=== PATIENT | female | born 1950 | race Caucasian/White ===

== ENCOUNTER 2022-06-14 16:37 | Emergency (ER) | payer OTHER ==
[~2022-06-14] VITALS: Ht 157.5 cm; Wt 98.9 kg
[2022-06-14 16:40] VITALS: BP_SYST 140
--- NOTE | 2022-06-14 17:03 | NUR ---
Patient to ER bed H2 to gown for evaluation. Side rails up. Report given to Randy AUGUSTINE .
--- NOTE | 2022-06-14 17:09 | NUR ---
April Chaudhari (pt's friend) called to inquire about pt's status. She states she will come to pick her up if needed. Friend lives in [place] but is willing to assist patient in any way. Her number was given to registration staff to update her demographic data. She can be reached at [phone] or [phone]
--- NOTE | 2022-06-14 17:19 | NUR ---
PT WAS ASSESSED BY DR. LEGGETT. PT STATED FLOYD AND DIZZINESS SINCE THIS MORNING. FEELING NOT GOOD. HX OF DM. PT WAS A/OX4, SPEAKS FULL SENTENCES, FOLLOWS COMMAND, NO SOB.
[2022-06-14] MEDS ORDERED: MECLIZINE HCL 25 MG TABLET (ANITVERT) PO ONE (17:30)
[2022-06-14 17:33] LABS: BILIRUBIN,URINE NEGATIVE (NEGATIVE); COLOR,URINE YELLOW (YELLOW); GLUCOSE,URINE 3+ (NEGATIVE); KETONES,URINE TRACE (NEGATIVE); LEUKOCYTE ESTERASE ,URINE TRACE (NEGATIVE); NITRITE, URINE POSITIVE (NEGATIVE); PH,URINE 5.5 (5.0-8.0); PROTEIN URINE NEGATIVE (NEGATIVE); UROBILINOGEN,URINE 0.2 (0.2-1.0)
[2022-06-14 17:53] LABS: BLOOD, URINE TRACE (NEGATIVE)
[2022-06-14 17:54] LABS: CLARITY/URINE SLIGHTLY HAZY (CLEAR)
[2022-06-14 18:02] LABS: BACTERIA,URINE FEW /HPF (None Seen); MUCUS,URINE None Seen /LPF (None Seen); RBC,URINE 0-3 /HPF (0-3)
--- NOTE | 2022-06-14 18:02 | NUR ---
PT DONE THE CT THEN BACK TO [facility]. ANTIVERT ADMINISTERED PER MD ORDER.
[2022-06-14 18:04] LABS: YEAST,URINE Few /HPF (None Seen)
[2022-06-14 18:04] LABS: BASOPHILS % (AUTO) 0.5 % (0.0-2.0); EOSINOPHILS # (AUTO) 0.2 K/uL (0.0-0.4); EOSINOPHILS % (AUTO) 2.2 % (0.0-4.0); HEMOGLOBIN 14.9 g/dL (12.0-16.0); LYMPHOCYTES # (AUTO) 1.7 K/uL (1.0-5.5); LYMPHOCYTES % (AUTO) 18.8 % (20.5-51.5); MEAN CORPUSCULAR HEMOGLOBIN 30 pg (27-31); MEAN CORPUSCULAR HGB CONC 35 % (32-36); MEAN CORPUSCULAR VOLUME 87 fL (79.0-98.0); MONOCYTES # (AUTO) 0.5 K/uL (0.0-1.0); MONOCYTES % (AUTO) 6.1 % (1.7-9.3); NEUTROPHILS # (AUTO) 6.4 K/uL (1.8-7.7); NEUTROPHILS % (AUTO) 72.4 % (40.0-70.0); PLATELET COUNT (AUTO) 145 K/uL (130-430); RED BLOOD CELL COUNT(AUTO) 4.96 MIL/uL (4.2-6.2); RED CELL DISTRIBUTION WIDTH 13.3 % (9.0-15.0); WHITE BLOOD COUNT (AUTO) 8.9 K/uL (4.8-10.8)
[2022-06-14 18:34] LABS: ANION GAP 7 (5-15); CALCIUM 9.4 mg/dL (8.4-11.0); CHLORIDE 105 mmol/L (98-107); CREATININE 1.05 mg/dL (0.55-1.30); GLUCOSE 183 mg/dL (70-99); UREA NITROGEN, BLOOD 17 mg/dL (8-21)
--- NOTE | 2022-06-14 18:37 | NUR ---
WALKING ON THE HW IN STEADY GAIT. WAITING FOR LAB RESULT.
[2022-06-14 18:43] LABS: ALANINE AMINOTRANSFERASE 25 U/L (12-78); ALBUMIN 3.6 g/dL (3.4-4.8); ASPARTATE AMINOTRANSFERASE 16 U/L (10-37); TOTAL BILIRUBIN 0.6 mg/dL (0.0-1.0)
[2022-06-14] MEDS ORDERED: NITROFURANTOIN MONOHYD/M-CRYST 100 MG CAPSULE (MacroBID) PO ONE (19:15)
[2022-06-14] MEDS ORDERED: MECL-261 PO (19:47)
[2022-06-14] MEDS ORDERED: NITR-85 PO (19:59)
--- NOTE | 2022-06-14 20:14 | NUR ---
Pt laying in bed at this time, no s/s of distress, will cont to monitor
[2022-06-14 21:02] VITALS: BP_SYST 140
--- NOTE | 2022-06-14 21:02 | NUR ---
Patient given written and verbal discharge instructions and verbalizes understanding. ER MD discussed with patient the results and treatment provided. Patient in stable condition. ID arm band removed. Rx of Meclizine given. Patient educated on pain management and to follow up with PMD. Pain Scale 0/10. Opportunity for questions provided and answered. Medication side effect fact sheet provided.
== END 2022-06-14 21:02 | disposition home or self-care (01) ==
LOC: SED 16:37
DX: R42 Dizziness and giddiness (principal); R11.0 Nausea; R06.02 Shortness of breath; E11.9 Type 2 diabetes mellitus without complications; I10 Essential (primary) hypertension; Z79.899 Other long term (current) drug therapy
CPT/HCPCS: 99285; 70450; 71045; 80053; 81000; 82550; 85025; 87086; 84484; 36415; 93005; 76376; J8597